=== PATIENT | female | born 1945 | race Caucasian/White ===

== ENCOUNTER 2017-11-23 21:13 | Emergency (ER) | payer MEDICARE, OTHER ==
[~2017-11-23] VITALS: Ht 162.6 cm; Wt 64.4 kg
[2017-11-23 21:13] VITALS: BP_SYST 148
[~2017-11-23 21:13] MED LIST: GLU500; [UNRECOGNIZED DRUG - CODE]
[2017-11-23 21:29] VITALS: BP_SYST 148
== END 2017-11-23 21:29 ==
LOC: SED 21:13
DX: Z02.89 Encounter for other administrative examinations (principal); E11.9 Type 2 diabetes mellitus without complications; I10 Essential (primary) hypertension; Z88.6 Allergy status to analgesic agent
CPT/HCPCS: 99283